=== PATIENT | male | born 1975 | race Caucasian/White ===

== ENCOUNTER 2019-07-09 10:57 | Emergency (ER) | payer BC ==
[2019-07-09 11:22] VITALS: BP 133/95
--- NOTE | 2019-07-09 11:36 | UC ---
Throat Pain/Nasal Shreyas HPI - HPI Summary HPI Summary: nasal congestion x 2 days + productive cough with yellow sputum +pnd, sore throat, no fever, no chills, no body aches - History of Current Complaint Chief Complaint: UCGeneralIllness Stated Complaint: CHEST CONGESTION,COUGH Time Seen by Provider: 07/09/19 11:25 Hx Obtained From: Patient Onset/Duration: Gradual Onset, Lasting Days - 2, Still Present Severity: Moderate Pain Intensity: 0 Cough: Productive Associated Signs & Symptoms: Positive: Sinus Discomfort, Nasal Discharge. Negative: Dysphagia, FB Sensation, Drooling, Wheezing, Hoarseness, Fever, Vomiting, Rash - Allergies/Home Medications Allergies/Adverse Reactions: Allergies Allergy/AdvReac Type Severity Reaction Status Date / Time No Known Allergies Allergy Verified 07/09/19 11:20 Home Medications: Home Medications Acetaminophen [Tylenol Extra Strength] 1,000 mg PO ONCE 07/09/19 [History Confirmed 07/09/19] diPHENhydraMINE PO* [Benadryl PO 25 MG TAB*] 25 mg PO ONCE 07/09/19 [History Confirmed 07/09/19] PMH/Surg Hx/FS Hx/Imm Hx Previously Healthy: Yes Other History Of: Negative For: HIV, Hepatitis B, Hepatitis C, Anticoagulant Therapy - Surgical History Surgical History: Yes Surgery Procedure, Year, and Place: back. right hand - Family History Known Family History: Positive: Cardiac Disease, Hypertension Negative: Diabetes, Renal Disease - Social History Alcohol Use: Rare Substance Use Type: None Substance Use Comment - Amount & Last Used: occasional Smoking Status (MU): Never Smoked Tobacco Review of Systems All Other Systems Reviewed And Are Negative: Yes Constitutional: Positive: Negative Skin: Positive: Negative Eyes: Positive: Negative ENT: Positive: Sore Throat, Nasal Discharge, Sinus Congestion, Sinus Pain/ Tenderness Respiratory: Positive: Cough Cardiovascular: Positive: Negative Is Patient Immunocompromised?: No Physical Exam Triage Information Reviewed: Yes Appearance: Well-Appearing, No Pain Distress, Well-Nourished Vital Signs: Initial Vital Signs Temp 98.5 F 07/09/19 11:18 Pulse 60 07/09/19 11:18 Resp 16 07/09/19 11:18 BP 133/95 07/09/19 11:18 Pulse Ox 99 07/09/19 11:18 Vital Signs Reviewed: Yes Eye Exam: Normal Eyes: Positive: Conjunctiva Clear ENT: Positive: Normal ENT inspection, Hearing grossly normal, Pharyngeal erythema, Nasal congestion, TM bulging, TM dull, TM red Neck: Positive: Supple, Nontender, No Lymphadenopathy Respiratory Exam: Normal Respiratory: Positive: Chest non-tender, Lungs clear, Normal breath sounds, No respiratory distress Cardiovascular: Positive: RRR, No Murmur, Brisk Capillary Refill Abdominal Exam: Normal Throat Pain/Nasal Course/Dx - Differential Dx/Diagnosis Provider Diagnosis: URI (upper respiratory infection) Discharge ED - Sign-Out/Discharge Documenting (check all that apply): Patient Departure All imaging exams completed and their final reports reviewed: No Studies - Discharge Plan Condition: Stable Disposition: HOME Patient Education Materials: Upper Respiratory Infection (ED) Forms: *Work Release Referrals: No Primary Care Phys,NOPCP [Primary Care Provider] - If Needed - Billing Disposition and Condition Condition: STABLE Disposition: Home
== END 2019-07-09 11:37 | disposition home or self-care (01) ==
LOC: UCCORT 10:57
DX: J06.9 Acute upper respiratory infection, unspecified (principal)
CPT/HCPCS: 99201; G0463

== ENCOUNTER 2020-01-10 13:23 | Emergency (ER) | payer BC ==
[2020-01-10 13:38] VITALS: BP 135/87
--- NOTE | 2020-01-10 13:38 | UC ---
Throat Pain/Nasal Shreyas HPI - HPI Summary HPI Summary: 44 yo with a sore throat for a week, with increase in pain last night with dysphagia. No fever, ear pain, or cough. He has been self quarantining and is not aware of any infectious contacts. He does have a hx of reflux, and reports a recent increase in caffeine use since off work. Does not drink alcohol. - History of Current Complaint Chief Complaint: UCGeneralIllness Stated Complaint: SORE THROAT Time Seen by Provider: 01/10/20 13:25 Hx Obtained From: Patient Onset/Duration: Gradual Onset, Lasting Days - 6-7 Severity: Moderate Pain Intensity: 5 Cough: None Associated Signs & Symptoms: Positive: Dysphagia, Sinus Discomfort, Other - headache; has hx of migraines in the past, but more recently has felt some sinus congestion. - Epiglottits Risk Factors Epiglottis Risk Factors: Negative - Allergies/Home Medications Allergies/Adverse Reactions: Allergies Allergy/AdvReac Type Severity Reaction Status Date / Time No Known Allergies Allergy Verified 01/10/20 13:32 Home Medications: Home Medications Acetaminophen [Tylenol Extra Strength] 1,000 mg PO ONCE 07/09/19 [History Confirmed 01/10/20] PMH/Surg Hx/FS Hx/Imm Hx Previously Healthy: Yes Cardiovascular History: Hypertension - blood pressure has decreased with changes in diet and exercise. Other History Of: Negative For: HIV, Hepatitis B, Hepatitis C, Anticoagulant Therapy - Surgical History Surgical History: Yes Surgery Procedure, Year, and Place: back. right hand - Family History Known Family History: Positive: Cardiac Disease, Hypertension, Other - migraines --mother Negative: Diabetes, Renal Disease - Social History Occupation: Employed Full-time - currently on furlough Lives: Dormitory/Roommates - living with friends Alcohol Use: Rare Substance Use Type: None Substance Use Comment - Amount & Last Used: occasional Smoking Status (MU): Never Smoked Tobacco Review of Systems All Other Systems Reviewed And Are Negative: Yes Constitutional: Positive: Negative Skin: Positive: Negative Eyes: Positive: Negative ENT: Positive: Sore Throat, Sinus Congestion. Negative: Ear Ache, Nasal Discharge Respiratory: Positive: Negative. Negative: Shortness Of Breath, Cough Cardiovascular: Positive: Negative. Negative: Chest Pain Gastrointestinal: Positive: Negative Genitourinary: Positive: Negative Motor: Positive: Negative Neurovascular: Positive: Negative Musculoskeletal: Positive: Negative Neurological/Mental Status: Positive: Headache - off and on, has frontal pressure and pain. Avoids meds and does deep breathing with improvement. Psychological: Positive: Negative Is Patient Immunocompromised?: No Physical Exam Triage Information Reviewed: Yes Appearance: Well-Appearing, No Pain Distress, Obese Eye Exam: Normal Eyes: Positive: Conjunctiva Clear ENT: Positive: Pharyngeal erythema - posterior erythema and cobblestoning., TM dull - bilateral. Negative: Tonsillar swelling, Tonsillar exudate Dental Exam: Normal Neck: Positive: Supple, Nontender, No Lymphadenopathy Respiratory: Positive: Lungs clear, Normal breath sounds Cardiovascular: Positive: RRR, No Murmur Abdominal Exam: Normal Musculoskeletal Exam: Normal Neurological Exam: Normal Psychological Exam: Normal Skin Exam: Normal Diagnostics - Laboratory Lab Results: Rapid strep negative. Throat Pain/Nasal Course/Dx - Course Course Of Treatment: Discussed possible causes of sore throat: viral, reflux, allergies. Suggested warm water and salt gargling, flonase spray to decrease post nasal drainage. Resume daily prilosec. - Differential Dx/Diagnosis Differential Diagnosis/HQI/PQRI: Laryngitis, Pharyngitis, Sinusitis, Tonsillitis , URI, Other - allergies Provider Diagnosis: Pharyngitis Discharge ED - Sign-Out/Discharge Documenting (check all that apply): Patient Departure All imaging exams completed and their final reports reviewed: No Studies - Discharge Plan Condition: Stable Disposition: HOME Patient Education Materials: Pharyngitis (ED) Referrals: No Primary Care Phys,NOPCP [Primary Care Provider] - Additional Instructions: Rapid strep testing is negative. There are a number of possible causes of your sore throat: ~viral infection. ~possible allergies. The appearance of the back of your throat shows and inflammatory change which is sometimes associated with allergies. You might try using an antihistamine daily for several weeks, such as fexofenadine 180mg daily OR cetirazine 10mg daily. Additionally, you could use a steroid nose spray such as fluticasine (Floase) 2 sprays to both nostrils once daily. ~reflux can cause a sore throat. You might try decreasing caffeine intake and taking daily prilosec. Follow up if you have persistent or worsening symptoms. - Billing Disposition and Condition Condition: STABLE Disposition: Home
== END 2020-01-10 14:02 | disposition home or self-care (01) ==
LOC: UCCORT 13:23
DX: J02.9 Acute pharyngitis, unspecified (principal); R13.10 Dysphagia, unspecified; I10 Essential (primary) hypertension
CPT/HCPCS: 87651; 99211; G0463